=== PATIENT | female | born 1975 | race Caucasian/White ===

== ENCOUNTER 2024-12-08 02:03 | Day surgery (SDC) | payer OTHER, SELFPAY ==
[2024-11-27 11:12] VITALS: BMI 22.4
--- OUTSIDE RECORDS SUMMARY | 2024-12-08 02:07 | XMS_ITS | Data Portability ---
Author Organization [facility], Main Office Address [address] [place] [address] Assessment Encounter Date Assessment Date Assessment LastModified by Organization Details LastModified Time 08/24/2022 08/24/2022 Blood work been ordered continue with her Synthroid follow-up in 6 months [email or web address] Not available 10/01/2022 13:13:28 03/08/2023 03/08/2023 Will continue current therapy and see me back in 6 months flu shot COVID shots recommended at time appropriate intervals. Colon cancer screening ordered [email or web address] Not available 03/11/2023 15:29:34 Plan of Treatment Reminders Order Date Submit Date Provider Last Modified By Organization Details Last Modified Time Details Appointments None recorded. Lab lipid panel, serum 2022 023 [email or web address] [facility] [address], [place], [address], 4 18:28:41 CMP, serum or plasma 2022 023 [facility] [address], [place], [address], 4 18:28:41 T4, free, serum 2022 023 [email or web address] [facility] [address], [place], [address], 4 18:28:40 TSH, serum or plasma 2022 023 [facility] [address], [place], [address], 4 18:28:40 T3, free, serum or plasma 2022 023 [email or web address] [facility], [address], [place], [address], 4 18:28:40 CBC w/ auto diff 2022 023 [email or web address] [facility], [address], [place], [address], 4 18:28:41 lipid panel, serum 2022 023 [email or web address] [facility], [address], [place], [address], 3 15:59:27 CMP, serum or plasma 2022 023 [email or web address] [facility], [place], [address], 3 15:59:32 CBC w/ auto diff 2022 023 [facility], [place], [address], 3 15:59:04 T4, free, serum 2022 023 [facility], [place], [address], 3 15:59:10 T3, free, serum or plasma 2022 023 [facility], [place], [address], 3 15:59:16 TSH, serum or plasma 2022 023 [facility], [place], [address], 3 15:59:22 Referral None recorded. Procedures colonoscopy screening (PROC) 2022 023 [email or web address] Ellis Mejias MD, [address], [address], [place], [address], 4 18:28:49 Surgeries None recorded. Imaging US, thyroid 2022 023 [email or web address] Not available 3 15:58:49 Medication Orders None recorded. Patient TargetsNo targets recorded. Patient InstructionsNo instructions recorded. Reason for Referral None Reported. Results Created Date Observation Date Name Description Value Unit Range Abnormal Flag Note LastModifiedBy Organization Detail LastModifiedTime Result Notes None recorded. Problems Name Problem SNOMED Code Status Onset Date Resolution Date Notes Provider Name and Address Organization Details Recorded Time Asthma 319352129 Active 2022 Everett Ovalles MD [address] [facility], [facility] [address], [place], [address] , [facility] [employer] [facility] 3 13:13:46 Fibrocystic disease of breast 76424724 Active 2016 Not Available [facility] 3 04:52:46 Screening for cardiovascula r system disease Active 2021 Not Available [facility] 3 04:52:46 Hypothyroidis m 97946128 Active 2017 Not Available [facility] 3 04:52:46 Problem Notes None recorded. Procedures Surgical History Date Name Laterality Status Provider Name and Address Organization Details Recorded Time Sinus Surgery completed Not Available [facility] 08/23/2022 04:43:13 Imaging Results None recorded. Procedure Notes None recorded. Medical Equipment None Reported. Allergies No known drug allergies Medications Name Sig Start Date Stop Date Status Note LastModified by Organization Details LastModified Time venlafaxine ER 75 mg capsule,ext ended release 24 hr TAKE 1 CAPSULE BY MOUTH EVERY DAY IN THE MORNING 08/12 completed Not Available Not Available Not Available paroxetine 10 mg tablet 01/31 completed Not Available Not Available Not Available azithromyci n 250 mg tablet 11/20 completed Not Available Not Available Not Available benzonatate 200 mg capsule 11/20 completed Not Available Not Available Not Available Claritin 10 mg tablet Take 1 tablet every day by oral route as needed for 30 days. 11/20 completed Not Available Not Available Not Available naltrexone 50 mg tablet TAKE 1/2 TAB BY MY MOUTH DAILY 04/20 completed Not Available Not Available Not Available prednisone 20 mg tablet 11/20 completed Not Available Not Available Not Available venlafaxine ER 150 mg capsule,ext ended release 24 hr TAKE 1 CAPSULE BY MOUTH EVERY DAY IN THE MORNING active Not Available Not Available No t Available paroxetine 30 mg tablet 08/13 completed Not Available Not Available Not Available paroxetine 20 mg tablet TAKE 1 TABLET BY MOUTH EVERY DAY WITH MEALS 02/24 completed Not Available Not Available Not Available gabapentin 300 mg capsule 08/13 completed Not Available Not Available Not Available hydroxyzine HCl 25 mg tablet TAKE 1 TABLET BY MOUTH TWICE A DAY NEEDED active Not Available Not Available No t Available paroxetine 40 mg tablet qd 08/12 completed Not Available Not Available Not Available hydroxyzine HCl 10 mg tablet 01/31 completed Not Available Not Available Not Available fluticasone propionate 50 mcg/actuati on nasal spray,suspe nsion [place] 1 spray every day by intranasa l route for 30 days. 11/20 completed Not Available Not Available Not Available sertraline 50 mg tablet 11/20 completed Not Available Not Available Not Available amoxicillin 875 mg-potassiu m clavulanate 125 mg tablet Take 1 tablet every 12 hours by oral route for 10 days. 11/20 completed Not Available Not Available Not Available Synthroid 137 mcg tablet TAKE 1 TABLET BY MOUTH EVERY DAY active Not Available Not Available No t Available Calcium 500 08/24 completed Not Available Not Available Not Available Advil PM 2021 active Not Available Not Available Not Avai lable melatonin 5 mg tablet TAKE 1 TABLET BY MOUTH EVERYDAY AT BEDTIME 02/24 completed Not Available Not Available Not Available venlafaxine ER 225 mg tablet,exte nded release 24 hr 08/12 completed Not Available Not Available Not Available albuterol sulfate 90 mcg/actuati on breath activated powder inhaler Inhale 2 puffs every 4 hours by inhalatio n route. 2016 active Not Available Not Available Not Avai lable Vitals Date Recorded Body height Body mass index (BMI) Body weight Body temperature Heart rate Systolic blood pressure Diastolic blood pressure Provider Name and Address Organization Details Last Updated DateTime 3 167.64 cm 22.3 kg/m2 68877.7 5 g 98.6 [degF] 94 /min 120 mm[Hg] 76 mm[Hg] Anita adames RN [facility] 3 14:29:35 Date Recorded Body mass index (BMI) Body height Heart rate Body temperature Body weight Systolic blood pressure Diastolic blood pressure Provider Name and Address Organization Details Last Updated DateTime 2 23.2 kg/m2 167.64 cm 72 /min 97.7 [degF] 33238.3 g 122 mm[Hg] 60 mm[Hg] Not Available [facility] 3 04:49:47 Date Recorded Body height Heart rate Body temperature Body weight Systolic blood pressure Diastolic blood pressure Provider Name and Address Organization Details Last Updated DateTime 2 167.64 cm 77 /min 97.7 [degF] 33549.3 4 g 112 mm[Hg] 74 mm[Hg] Not Available [facility] 3 04:49:47 Date Recorded Body height Body mass index (BMI) Body weight Body temperature Heart rate Systolic blood pressure Diastolic blood pressure Provider Name and Address Organization Details Last Updated DateTime 3 167.64 cm 22.4 kg/m2 23381.3 4 g 98.2 [degF] 64 /min 110 mm[Hg] 70 mm[Hg] ASTER Elder [facility] 3 15:16:24 Date Recorded Body mass index (BMI) Body height Body temperature Body weight Provider Name and Address Organization Details Last Updated DateTime 04/14/2021 23.6 kg/m2 167.64 cm 97.3 [degF] 56045.2 g Not Available [facility] 08/23/2022 04:49:50 Social History Question Answer Notes LastModified by Organizat ion Details LastModified Time Tobacco Smoking Status Never Smoker Not Available [facility] 08/23/2022 04:41:53 Do You Have An Advance Directive? No MIGRATION.[id number] Information not available 08/23/2022 Do You Wear A Helmet When Biking? Yes MIGRATION.55794 31325 Information not available 08/23/2022 What Is Your Level Of Caffeine Consumption? Moderate MIGRATION.47115 90239 Information not available 08/23/2022 How Much Tobacco Do You Chew? None MIGRATION.07784 53144 Information not available 08/23/2022 In The 14 Days Before Symptom Onset, Have You Had Close Contact With A Laboratory-confi rmed COVID-19 While That Case Was Ill? No MIGRATION.33693 10954 Information not available 08/23/2022 In The 14 Days Before Symptom Onset, Have You Had Close Contact With A Person Who Is Under Investigation For COVID-19 While That Person Was Ill? No MIGRATION.23064 19713 Information not available 08/23/2022 What Type Of Diet Are You Following? REGULAR MIGRATION.52925 29436 Information not available 08/23/2022 Which Illicit Or Recreational Drugs Have You Used? None MIGRATION.86827 82941 Information not available 08/23/2022 What Is The Highest Grade Or Level Of School You Have Completed Or The Highest Degree You Have Received? [id number] MIGRATION.72061 49184 Information not available 08/23/2022 Have There Been Any Changes To Your Family Or Social Situation? No MIGRATION.64141 13045 Information not available 08/23/2022 What Is The Fluoride Status Of Your Home? Unknown MIGRATION.84911 81870 Information not available 08/23/2022 Are There Any Guns Present In Your Home? No MIGRATION.98626 80496 Information not available 08/23/2022 Do You Use Insect Repellent Routinely? No MIGRATION.76119 32526 Information not available 08/23/2022 [facility] MIGRATION.05546 17922 Information not available 08/23/2022 Do You Have A Medical Power Of Advisory Software Engineer? No MIGRATION.01957 52297 Information not available 08/23/2022 What Was The Date Of Your Most Recent Tobacco Screening? 03/08/2023 [email or web address] Information not available 03/08/2023 Do You Have Any Pets? Yes MIGRATION.72106 50738 Information not available 08/23/2022 What Is Your Relationship Status? MIGRATION.49969 80499 Information not available 08/23/2022 Do You Use Your Seat Belt Or Car Seat Routinely? Yes MIGRATION.08415 26230 Information not available 08/23/2022 Do You Have Smoke And Carbon Monoxide Detectors In Your Home? Yes MIGRATION.03475 56008 Information not available 08/23/2022 Are You Passively Exposed To Smoke? No MIGRATION.27846 02616 Information not available 08/23/2022 Are There Any Smokers In Your House? No MIGRATION.58681 36554 Information not available 08/23/2022 What Types Of Sporting Activities Do You Participate In? Runs MIGRATION.95689 96728 Information not available 08/23/2022 Do You Use Sunscreen Routinely? Yes MIGRATION.35085 19164 Information not available 08/23/2022 Has Tobacco Cessation Counseling Been Provided? No Not Needed-ne kristel Smoked MIGRATION.36211 49318 Information not available 08/23/2022 How Many Years Have You Smoked Tobacco? 0 MIGRATION.00073 82811 Information not available 08/23/2022 Have You Recently Traveled Abroad? No MIGRATION.40482 40868 Information not available 08/23/2022 Do You Have Any Dietary Restrictions? No MIGRATION.40449 42678 Information not available 08/23/2022 Sex: Female Functional Status Question Answer Note LastModified by [employer] ion Details LastModified Time Do you use any illicit or recreational drugs? No MIGRATION.719095 9500 Information not available 08/23/2022 Do you or have you ever used any other forms of tobacco or nicotine? No MIGRATION.694104 8274 Information not available 08/23/2022 What is your level of alcohol consumption? None MIGRATION.401392 5723 Information not available 08/23/2022 Do you or have you ever used smokeless tobacco? Never used smokeless tobacco MIGRATION.516662 4892 Information not available 08/23/2022 Are you currently employed? 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 Never used electronic cigarettes MIGRATION.441787 1934 Information not available 08/23/2022 What is your exercise level? Heavy MIGRATION.242547 4776 Information not available 08/23/2022 Mental Status Question Answer Note LastModified by Organizat ion Details LastModified Time Do you feel stressed (tense, restless, nervous, or anxious, or unable to sleep at night)? [id number] MIGRATION.[id number] 6 Information not available 08/23/2022 Family History Relationship Description Onset Age of this Age Resolved Age Notes LastModified by Organization Details LastModified Time Mother Asthma MIGRATION.506 [id number] Not available 08/23/2022 04:43:20 Mother Arthritis MIGRATION.533 [id number] Not available 08/23/2022 04:43:20 Mother Atrial fibrillation 68 MIGRATION.328 3022085 Not available 08/23/2022 04:43:20 Mother Hypothyroidi sm MIGRATION.877 [id number] Not available 08/23/2022 04:43:20 Sister Asthma MIGRATION.563 [id number] Not available 08/23/2022 04:43:20 Sister Hypothyroidi sm MIGRATION.704 [id number] Not available 08/23/2022 04:43:20 Maternal Grandmother Arthritis MIGRATION.269 [id number] Not available 08/23/2022 04:43:20 Maternal Grandmother Anemia MIGRATION.038 [id number] Not available 08/23/2022 04:43:20 Maternal Grandmother Urinary bladder problem MIGRATION.367 4612404 Not available 08/23/2022 04:43:20 Maternal Grandmother Hypertensive disorder MIGRATION.469 8510996 Not available 08/23/2022 04:43:21 Maternal Grandfather Parkinson's disease MIGRATION.374 0258487 Not available 08/23/2022 04:43:21 Maternal Grandfather Glaucoma MIGRATION.035 5787671 Not available 08/23/2022 04:43:21 Maternal Grandfather Gout MIGRATION.126 0877181 Not available 08/23/2022 04:43:21 Paternal Grandfather Glaucoma MIGRATION.466 2027524 Not available 08/23/2022 04:43:21 Paternal Grandfather Heart disease MIGRATION.733 6565943 Not available 08/23/2022 04:43:21 Paternal Grandmother Hypothyroidi sm MIGRATION.131 6009770 Not available 08/23/2022 04:43:21 Medical History Condition Response NERVE DISEASE N BLINDNESS N RHEUMATIC FEVER N KIDNEY STONES N BLADDER PROBLEMS N MRSA N OTHER # 1 N POLIO N LUNG DISEASE/DISORDER N HISTORY OF DRUG ABUSE N COPD N RADIATION / CHEMOTHERAPY N Other # 2 N BLOOD DISEASES N EAR OR HEARING PROBLEMS N MUMPS N SHINGLES N DEPRESSION (INCLUDING POST ) N BOWEL PROBLEMS N STROKE/TIA N ULCERS N BENIGN PROSTATIC HYPERPLASIA N MEASLES N MYOCARDIAL INFARCTION N OBESITY N GERD/NAUSEA N ANEURYSM N URINARY/BLADDER/KIDNEY PROBLEMS N CORONARY ARTERY DISEASE (CAD) N ADDICTION CONCERNS N Impotence N ENDOMETRIOSIS N USE OF BLOOD THINNERS N SKIN PROBLEMS N GASTROINTESTINAL DISORDER N PARATHYROID DISEASE N PERIPHERAL VASCULAR DISEASE N MUSCLE,JOINT OR BONE PROBLEMS N GASTROINTESTINAL BLEEDING N BLOOD CLOTS N ASTHMA Y CATARACTS N ERECTILE DYSFUNCTION N VARICOSITIES N GI PROBLEMS N CHF N Low Testosterone N INFERTILITY N AIDS/HIV N CHEMOTHERAPY / RADIATION N LIVER DISEASE N MALE HYPOGONADISM N HYPERTENSION N Deficiency N TOURETTE'S N ANXIETY DISORDER N BLOOD TRANSFUSION N ANEMIA/BLOOD DISORDER N CHRONIC EAR INFECTIONS N BRONCHITIS N TUBERCULOSIS N GLAUCOMA N FOOT PROBLEM N DIVERTICULITIS N SLEEP APNEA N CHICKENPOX N ALLERGIES/HAYFEVER N INFECTIOUS DISEASE N PROSTATE N HEART ARRHYTHMIA N INSOMNIA N HIGH CHOLESTEROL / HYPERLIPIDEMIA N EYE PROBLEMS N HYPERTHYROIDISM N EDEMA N CHRONIC PAIN SYNDROME N HYPOTHYROIDISM Y CAROTID BLOCKAGE N CONSTIPATION N BACK / NECK PROBLEMS N HAVE YOU BEEN HOSPITALIZED OR SEEN IN [facility] IN THE PAST YEAR ? N ATHEROSCLEROSIS N BREAST PROBLEMS Y DIALYSIS N ECZEMA N HISTORY WITH COMPLICATIONS WITH ANESTHES IA ? N OSTEOPOROSIS N ARTHRITIS N APPENDICITIS N DIABETES, TYPE N BAD TEETH N ENT N SEASONAL ALLERGIES N HEARTBURN / REFLUX N AUTISM SPECTRUM DISORDER (ASD) N HEPATITIS / LIVER DISEASE N GOUT N SLEEP DISORDER N ALZHEIMER'S DISEASE N Brain Problems N DEMENTIA N HERPES N SEIZURES/EPILEPSY N HEADACHES/MIGRAINES N VASCULAR DISEASE N PACEMAKER N Blood Disorder N DIZZINESS N HEART DISEASE/HEART PROBLEMS N KIDNEY DISEASE N MULTIPLE SCLEROSIS N CANCER: SPECIFY N CARDIAC ARRHYTHMIA N ANESTHESIA COMPLICATIONS N ATRIAL FIBRILLATION N Gall Stones N PULMONARY EMBOLISM N AUTOIMMUNE DISEASE N Gynecological HistoryNo gynecological history recorded. Obstetrics History GPAL:G 0 P 0 0 0 0 Immunizations Vaccine Type Date Status Note Provider Nam e and Address Organization Details Recorded Time Influenza, split virus, quadrivalent, preservative 7 completed Not Available [facility] 08/23/2022 05:05:51 influenza, unspecified formulation 6 completed Not Available [facility] 08/23/2022 05:05:51 TST-PPD intradermal 5 completed Not Available [facility] 03/08/2023 14:53:37 Past Encounters Encounter ID Performer Location Encounter Start Date Encounter Closed Date Diagnosis/Indication Diagnosis SNOMED-CT Code Diagnosis ICD10 Code Diagnosis Note [id number] Everett Ovalles MD [facility] Internal Med [place] [address] [place] [address] y , [place] [address] 02/24/2021 00:00:00 03/14/2021 22:31:16 [id number] Blaine Brooks MD [facility] ENT [place] [address] [place] [address] 04/14/2021 00:00:00 04/14/2021 11:30:12 [id number] Everett Ovalles MD [facility] Internal Med [place] [address] [place] [address] y , [place] [address] 08/25/2021 00:00:00 09/10/2021 16:07:32 [id number] Everett Ovalles MD [facility] Internal Med [place] [address] [place] [address] y , [place] [address] 02/23/2022 00:00:00 03/11/2022 15:53:35 [id number] Everett Ovalles MD [facility] Internal Med [place] [address] [place] [address] y , [place] [address] 08/24/2022 14:23:42 08/24/2022 15:14:11 Hypothyroidism 24374860 E03.9 Screening for cardiovascular system disease 621081971 Z13.6 Asthma 975827502 J45.90 9 [id number] Everett Ovalles MD [facility] Internal Med [place] [address] [place] [address] y , [place] [address] 03/08/2023 14:51:55 03/08/2023 16:02:44 Hypothyroidism 41255586 E03.9 Screening for cardiovascular system disease 827603723 Z13.6 Screening for malignant neoplasm of colon 541726794 Z12.11 Asthma 397651518 J45.90 9 Health Concerns Section Related Observation LastModified by Organization Detai ls LastModified Time None Recorded Concern Status LastModified by Organization Details LastModified Time None Recorded Advance Directives Directive N: Payers Insurance Date Sequence Insurance Name Policy Number Policy Carmona Covered Member ID Carmona Member ID Guarantor Name 03/12/2023 1 [employer] - OPEN ACCESS [id number] Dahlia [place] [id number] OI Dahlia [place] Notes Date Note Type Note Provider Name and Address Organization Details Recorded Time 08/24/2022 text/html hypothyroid no heat or cold intolerance Everett Ovalles MD [address], [place] [address], [place], [address], [facility] 10/01/2022 13:14:08 03/08/2023 text/html Asthma stable hypothyroid doing fine no heat or cold intolerance Everett Ovalles MD [address], [facility] [address], [place], [address], [facility] 03/11/2023 15:29:50 OBGyn Episode No OBEpisode recorded.
[2024-12-08 13:40] VITALS: BP 99/77; PULSE 74; RESP 16; TEMP 36.9; O2SAT 100; BMI 22.1
--- NOTE | 2024-12-08 13:46 | WPDANESEPPF ---
Anes - Initial Pre Proc Eval Procedure: Operation Date: 12/08/24 14:30 Proposed Procedures p Colonoscopy - Dagoberto Medina MD Date/Time: 12/08/24 13:46 Surgeon: Dagoberto Medina MD Pre Op Diagnosis: Family history of malignant neoplasm of digestive Patient Data Age: 49 Gender: F Height: 1.68 m Weight: 63 kg Allergies Allergy/AdvReac Type Severity Reaction Status Date / Time No Known Allergies Allergy Verified 12/08/24 13:38 Home Medications ?Medication ?Instructions ?Recorded ?Confirmed ?Type albuterol sulfate 90 mcg/actuation inhalation 11/27/24 History aerosol inhaler atorvastatin 10 mg tablet 10 mg PO DAILY 11/27/24 12/08/24 History levothyroxine 137 mcg tablet 137 mcg PO DAILY 11/27/24 12/08/24 History (Synthroid) Patient hx anesthesia problems: none Family hx anesthesia problems: none Results Review: All pre-operative results and documents have been reviewed as part of the pre-operative evaluation. [facility] Past Medical History Medical History (Updated 12/08/24 @ 13:47 by Binu Rae DO) Anxiety Hypothyroidism Hyperlipidemia Asthma Social History Social History Smoking status: Never smoker Substance use type: does not use Living arrangements: with family Anes - Eval Final PreProcedure Day of Procedure 12/08/24 13:46 Patient weight: normal Heart: regular rate and rhythm Lungs: clear to auscultation and normal air movement Airway: Mallampati scale class II Neurological: alert and oriented Last oral intake: >/= 8 hours ASA classification: II Emergent: no Anesthetic plan: proceed Anesthesia type and monitoring: general GIVS and standard monitoring Results Review: All pre-operative results and documents have been reviewed as part of the pre-operative evaluation. Informed Consent: The patient's anesthetic plan and its attendant risks and benefits were discussed with the patient/family/POA. Questions were solicited and answers provided to the satisfaction of the patient/family/POA.
[2024-12-08 13:49] LABS: BEDSIDEPREGUCG Negative (Negative)
[2024-12-08] MEDS: LACTATED RINGERS 1,000 ML 150 ML IV CONT (13:53)
--- NOTE | 2024-12-08 13:57 | SUR.PREOP ---
Patient was chewing gum upon arrival to pre operative room. Patient spit out gum and anesthesia notified.
--- NOTE | 2024-12-08 14:33 | PM.HPGS ---
History of Present Illness History of Present Illness Consent: Risks, benefits, and alternatives have been discussed and questions answered. Patient agrees to proceed with procedure. Chief complaint: Family history of malignant neoplasm of digestive Narrative: Dahlia Houston is a 49 year old female here for first screening colonoscopy Review of Systems Review of Systems: All systems reviewed & are unremarkable except as noted in HPI and below PMFSH Past Medical History Medical History (Updated 12/08/24 @ 14:34 by Dagoberto Medina MD) Colon cancer screening Anxiety Hypothyroidism Hyperlipidemia Asthma Social History Social History Smoking status: Never smoker Substance use type: does not use Living arrangements: with family Meds Home Medications and Allergies Home Medications ?Medication ?Instructions ?Recorded ?Confirmed ?Type albuterol sulfate 90 mcg/actuation inhalation 11/27/24 History aerosol inhaler atorvastatin 10 mg tablet 10 mg PO DAILY 11/27/24 12/08/24 History levothyroxine 137 mcg tablet 137 mcg PO DAILY 11/27/24 12/08/24 History (Synthroid) Allergies Allergy/AdvReac Type Severity Reaction Status Date / Time No Known Allergies Allergy Verified 12/08/24 13:38 Vital Signs Vital Signs - 24 hr 12/08/24 13:40 Temperature 98.4 F Pulse Rate 74 Respiratory Rate 16 Blood Pressure 99/77 L Pulse Oximetry 100 Oxygen Delivery Room Air Exam Const: General: comfortable and no acute distress HENMT: Face/Nose/Sinus: Normal nares present Eyes: General: appearance normal, both eyes and all related structures Neck: Neck: no JVD Resp: Auscultation: clear to auscultation bilaterally Cardio: Rate: regular rate Rhythm: regular rhythm GI: Inspection: non-distended GI Palp: Yes Soft to palpation Skin: General skin exam: normal color Neuro: General: gait normal Speech: normal speech Extrem: General: normal to inspection Psych: Mental Status: mental status grossly normal Assessment and Plan Assessment and plan (1) Colon cancer screening: Code(s): Z12.11 - Encounter for screening for malignant neoplasm of colon Status: Acute Assessment and Plan: colonoscopy
[2024-12-08 14:48] VITALS: BP 91/52; PULSE 60; RESP 20; O2SAT 100
--- NOTE | 2024-12-08 14:48 | S_PTH ---
PATIENT: Dahlia Houston LOC: [facility]#:[id number] AGE/SX: 49/F ROOM: RE12/08/[address]: Dagoberto Medina MD : 1975 BED: DIS: 12/08/2024 SPEC #: [id number] RECD: 12/09/24 07:44 STATUS: YAMILET REDaryl #: [id number] JOHN: 12/08/24 14:[address]: Dagoberto Medina DEPT: [facility] Surgical RECD BY: Efrain Beatty ENTERED: 12/09/24 07:45 SP TYPE: Surgical OTHR DR: Everett Ovalles, Tissues: A - Colon Polypectomy Procedures: Hematoxylin and Eosin Stain Gross and Microscopic Level 4
[2024-12-08 14:58] VITALS: BP 106/69; PULSE 56; RESP 20; O2SAT 100
[2024-12-08 15:08] VITALS: BP 112/65; PULSE 56; RESP 18; O2SAT 100
== END 2024-12-08 15:18 | disposition home or self-care (01) ==
PROVIDERS: Anesthesiology; PCP Internal Medicine; Visit Provider Internal Medicine Gastroenterology
PROC: 0DJD8ZZ Inspection of Lower Intestinal Tract, Via Natural or Artificial Opening Endoscopic (ICD-10-PCS; CPT 45378; principal; 2024-12-08 14:30)
DX: Z12.11 Encounter for screening for malignant neoplasm of colon (principal); K63.5 Polyp of colon
CPT/HCPCS: 45385; 88305; J2704; J7120